=== PATIENT | female | born 2000 | race American Indian/Alaskan Native ===

== ENCOUNTER 2020-03-01 14:55 | Inpatient (IN) | payer OTHER ==
[~2020-03-01] VITALS: Ht 172.7 cm; Wt 65.8 kg
[2020-03-04] MEDS ORDERED: Procardia Xl 30MG TA PO (13:04)
== END 2020-03-04 13:23 | DRG 833 ==
LOC: OBS/DEL 14:55 → LDR 18:56 → OB/GYN 03-02 12:48
PROVIDERS: ADMIT Obstetrics & Gynecology; ATTEND Obstetrics & Gynecology
PROC: 4A1HXFZ Monitoring of Products of Conception, Cardiac Rhythm, External Approach (ICD-10-PCS; principal; 2020-03-01)
PROC: BY4FZZZ Ultrasonography of Third Trimester, Single Fetus (ICD-10-PCS; 2020-03-02)
DX: O47.03 False labor before 37 completed weeks of gestation, third trimester (principal); Z3A.34 34 weeks gestation of pregnancy; Z20.828 Contact with and (suspected) exposure to other viral communicable diseases; O09.33 Supervision of pregnancy with insufficient antenatal care, third trimester